=== PATIENT | female | born 1970 | race Two or more races ===

== ENCOUNTER → 2022-02-12 | Emergency (ER) | payer OTHER ==
[~2022-02-12] VITALS: Ht 162.6 cm; Wt 56.2 kg
== END | disposition home or self-care (01) ==
LOC: ER 20:03
DX: I95.9 Hypotension, unspecified (principal); A05.9 Bacterial foodborne intoxication, unspecified; R55 Syncope and collapse; I10 Essential (primary) hypertension; Z88.8 Allergy status to other drugs, medicaments and biological substances